=== PATIENT | female | born 1950 | race American Indian/Alaskan Native ===

== ENCOUNTER 2017-03-27 13:55 | Emergency (ER) | payer MEDICARE ==
--- NOTE | 2017-03-27 14:14 | Emergency Department Report ---
Chief Complaint: Fall Stated Complaint: FELL/LEFT LEG INJURY Time Seen by Provider: 03/27/17 14:10 - HPI History of Present Illness: pt states she was walking in from her porch and her slippers got stuck in the door and she slipped and fell. no neck or back pain. + l knee pain - ROS Review of Systems: - rodrigues - cp + L knee pain - Exam Vital Signs: Vital Signs 03/27/17 14:04 Temperature 97.4 F L Pulse Rate 72 Respiratory 18 Rate Blood Pressure 197/91 O2 Sat by Pulse 100 Oximetry Physical Exam: pt is alert and appropriate pt with post L knee pain MSE screening note: Focused history and physical exam performed. Due to findings the following was ordered: xr ED Disposition for MSE Condition: Stable
--- NOTE | 2017-03-27 15:12 | XRay Report ---
LEFT KNEE RADIOGRAPHS INDICATION: Pain, status post slip and fall. COMPARISON: None similar. FINDINGS: AP, lateral and oblique left knee radiographs demonstrate intact articulation. Bony demineralization with moderate degenerative spurring, most involving the medial knee compartment and the tibial spines. Moderate medial knee compartment narrowing also suspected. Superior patellar enthesophyte. No suprapatellar effusion. CONCLUSION: Moderate right knee osteoarthritic changes without acute bony abnormality. Thank you for the opportunity to participate in this patient's care.
[2017-03-27] MEDS ORDERED: NORCO 5/325 PO ONE (16:47)
[2017-03-27] MEDS ORDERED: ZOFRAN ODT PO ONE (16:48)
--- NOTE | 2017-03-27 17:45 | Emergency Department Report ---
ED Lower Extremity HPI - General Chief Complaint: Fall Stated Complaint: FELL/LEFT LEG INJURY Time Seen by Provider: 03/27/17 14:10 Source: patient Mode of arrival: Ambulatory Limitations: No Limitations - History of Present Illness Initial Comments: 66-year-old female past medical history hypertension, hyperlipidemia, diabetes presents with complaint of accidental fall. Patient states she slipped in her kitchen and fell onto her left side. As per patient there was no component of lightheadedness and dizziness chest pain shortness of breath or weakness before the fall. States she believes she tripped on something on the ground. Patient denies head trauma denies any loss of consciousness. States he had difficulty standing up secondary to pain in her left knee. On exam patient is not in acute distress accompanied by and family friends, awake alert and oriented 3. States that her left knee as throbbing. Denies any neck pain denies any other injuries no laceration sustained. MD Complaint: knee injury, leg injury -: This morning Injury: Hip: Left, Leg: Left, Knee: Left Place: home Severity: moderate Severity scale (0 -10): 4 Worsens With: nothing Context: fall Associated Symptoms: ambulatory - Related Data Previous Rx's Medication Instructions Recorded Last Taken Type Naproxen [Naprosyn TAB] 375 mg PO BID PRN #20 tablet 03/27/17 Unknown Rx Allergies Allergy/AdvReac Type Severity Reaction Status Date / Time No Known Allergies Allergy Unverified 03/27/17 14:04 ED Review of Systems ROS: Stated complaint: FELL/LEFT LEG INJURY Other details as noted in HPI Constitutional: denies: chills, fever Eyes: denies: eye pain, eye discharge, vision change ENT: denies: ear pain, throat pain Respiratory: denies: cough, shortness of breath, wheezing Cardiovascular: denies: chest pain, palpitations Endocrine: no symptoms reported Gastrointestinal: denies: abdominal pain, nausea, diarrhea Genitourinary: denies: urgency, dysuria, discharge Musculoskeletal: denies: back pain, joint swelling, arthralgia Skin: denies: rash, lesions Neurological: denies: headache, weakness, paresthesias Psychiatric: denies: anxiety, depression Hematological/Lymphatic: denies: easy bleeding, easy bruising ED Past Medical Hx - Past Medical History Previous Medical History?: Yes Hx Hypertension: Yes Hx Diabetes: Yes (no meds) - Surgical History Past Surgical History?: Yes Additional Surgical History: Tubaligation, Right arm srgery for removal of a lipoma, Right hand carpel tunnel surgery - Social History Smoking Status: Former Smoker Substance Use Type: Prescribed - Medications Home Medications: Home Medications Medication Instructions Recorded Confirmed Last Taken Type Naproxen [Naprosyn TAB] 375 mg PO BID PRN #20 tablet 03/27/17 Unknown Rx ED Physical Exam - General Limitations: No Limitations General appearance: alert, in no apparent distress - Head Head exam: Present: atraumatic, normocephalic - Eye Eye exam: Present: normal appearance, PERRL, EOMI - ENT ENT exam: Present: mucous membranes moist - Neck Neck exam: Present: normal inspection - Respiratory Respiratory exam: Present: normal lung sounds bilaterally. Absent: respiratory distress - Cardiovascular Cardiovascular Exam: Present: regular rate, normal rhythm. Absent: systolic murmur, diastolic murmur, rubs, gallop - GI/Abdominal GI/Abdominal exam: Present: soft, normal bowel sounds - Extremities Exam Extremities exam: Present: normal inspection - Expanded Lower Extremity Exam Left Hip exam: Present: normal inspection, full ROM (patient able to flex and extend internally and externally rotate her left hip) Upper Leg exam: Present: normal inspection, full ROM Knee exam: Present: normal inspection, full ROM (knee flexion and extension intact on exam), tenderness (mild anterior knee tenderness on exam to deep palpation) Lower Leg exam: Present: normal inspection, full ROM Ankle exam: Present: normal inspection, full ROM Foot/Toe exam: Present: normal inspection, full ROM Neuro vascular tendon exam: Present: no vascular compromise (distal dorsalis pedis and posterior tibial pulses intact to palpation) Gait: Positive: antalgic (she denies antalgic) 1 - Producible knee tenderness here, no significant swelling no laceration - Back Exam Back exam: Present: normal inspection - Neurological Exam Neurological exam: Present: alert, oriented X3, CN II-XII intact, abnormal gait (antalgic gait secondary to pain) - Psychiatric Psychiatric exam: Present: normal affect, normal mood - Skin Skin exam: Present: warm, dry, intact, normal color. Absent: rash ED Course Vital Signs 03/27/17 03/27/17 14:04 18:56 Temperature 97.4 F L Pulse Rate 72 72 Respiratory 18 16 Rate Blood Pressure 197/91 Blood Pressure 204/73 [Right] O2 Sat by Pulse 100 98 Oximetry ED Lower Extremity MDM - Medical Decision Making A/P: Left knee pain status post mechanical fall 1-patient given Tomas wrap left knee immobilizer and walker, patient is able to ambulate with these devices without assistance from another person 2-x-rays show no fractures, chronic advanced osteoarthritic changes 3-follow-up with primary care, follow-up with orthopedics. NSAIDs, R ICE therapy 4-patient did not sustain head trauma, no clinical requirement for head CT/C- spine CT. Nexus criteria negative. Patient is fully lucid awake alert oriented cooperative and able to answer all questions appropriately Critical care attestation.: If time is entered above; I have spent that time in minutes in the direct care of this critically ill patient, excluding procedure time. ED Disposition Clinical Impression: Left knee pain Qualifiers: Chronicity: acute Qualified Code(s): M25.562 - Pain in left knee Disposition: DC-01 TO HOME OR SELFCARE Is pt being admited?: No Does the pt Need Aspirin: No Condition: Stable Instructions: Fall Prevention for Older Adults (ED), Knee Pain (ED), Arthralgia (ED), Fall Prevention (ED) Prescriptions: Naproxen [Naprosyn TAB] 375 mg PO BID PRN #20 tablet PRN Reason: Pain Referrals: TERESITA MCGARRY MD [Primary Care Provider] - 3-5 Days RODOLFO HERNANDEZ MD [Staff Physician] - 3-5 Days Forms: Accompanied Note Time of Disposition: 18:50
--- NOTE | 2017-03-27 18:40 | XRay Report ---
FINAL REPORT EXAM: XR HIP 2-3V LT HISTORY: left sided hip pain TECHNIQUE: One view of the pelvis 2 views of the left hip PRIORS: None. FINDINGS: Multifocal degenerative change in the pelvis and left hip. Bilateral femoral neck collar osteophytes are noted. Smoothly marginated ossicle appears chronic adjacent to the left greater trochanter and right greater trochanter. No definite hip joint space narrowing. There is no definite radiographic evidence of acute fracture or dislocation. No evidence of osseous lesion. IMPRESSION: No definite radiographic evidence of acute skeletal pathology
--- NOTE | 2017-03-27 18:41 | XRay Report ---
FINAL REPORT EXAM: XR TIBIA FIBULA 2V LT HISTORY: s/p fall c/o LLE pain TECHNIQUE: 2 views of the left tibia and fibula PRIORS: None. FINDINGS: Ankle and knee degenerative arthrosis. Plantar calcaneal bone spurring is small. Anterior patella degenerative enthesopathy is small. There is no definite radiographic evidence of acute fracture or dislocation. No evidence of osseous lesion. IMPRESSION: No acute skeletal pathology
[2017-03-27 18:57] VITALS: BP 204/73
== END 2017-03-27 19:00 | disposition home or self-care (01) ==
LOC: ED 13:55
DX: M25.562 Pain in left knee (principal); I10 Essential (primary) hypertension; E11.9 Type 2 diabetes mellitus without complications; Z87.891 Personal history of nicotine dependence; W19.XXXA Unspecified fall, initial encounter; Y93.89 Activity, other specified; Y99.8 Other external cause status; Y92.000 Kitchen of unspecified non-institutional (private) residence as the place of occurrence of the external cause
CPT/HCPCS: Q0162